=== PATIENT | male | born 1960 | race Caucasian/White ===

== ENCOUNTER → 2016-11-26 15:46 | Emergency (ER) | payer OTHER ==
[~2016-11-26 15:46] MED LIST: Levofloxacin 750 MG IVPREMIX(* 750 MG/150 ML BAG IVPB ONE
[2016-11-26 18:03] LABS: Hematocrit 47 % (42-52); Hemoglobin 15.8 g/dl (14.0-18.0); Mean Corpuscular HGB Conc 34 g/dl (31-36); Mean Corpuscular Hemoglobin 30 pg (27-31); Mean Corpuscular Volume 89 fL (80-94); Mean Platelet Volume 9 um3 (7.4-10.4); Red Blood Count 5.25 10^6/ul (4.0-5.4); Red Cell Distribution Width 12 % (10.5-15); White Blood Count 7.5 10^3/ul (3.5-10.8)
[2016-11-26 18:14] LABS: BUN/Creatinine Ratio 13.8 (8-20); C Reactive Protein 43.59 mg/L (< 5.00); Calcium 9.3 mg/dL (8.6-10.3); EGFR African American 107.2 (>60); EGFR Non-African American 83.3 (>60); Potassium 3.8 mmol/L (3.5-5.0); Total Bilirubin 1.4 mg/dL (0.2-1.0)
--- NOTE | 2016-11-26 19:00 | ED ---
Mariely Hernandez Auryana, scribed for Stewart Arredondo MD on 11/26/16 at 1739 . Respiratory - HPI Summary HPI Summary: 56 year old male presents with SHAW and hemoptysis starting yesterday morning. He reports that he also has pain at the right lateral chest just under the axillary with coughing, fever (on arrival at ), and increased fatigue. He denies chills, diaphoresis, nausea, vomiting, and any rashes. He was seen at Urgent Care - received CXR - referred to ED. Dr. Suarez - patient states he was concerned about infections and pulmonary embolism. 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 FHx is significant for DM, thyroid issues, and cardiac disease (NC etc.). He denies any tobacco, alcohol, or recreational drugs. - History of Current Complaint Chief Complaint: EDChestWallPain Stated Complaint: COUGH Time Seen by Provider: 11/26/16 16:13 Hx Obtained From: Patient Onset/Duration: Sudden Onset, Lasting Days - YESTERDAY, Still Present Initial Severity: Mild Current Severity: Mild Pain Intensity: 4 Character: Cough (Productive), Dyspnea on Exertion Sputum Color: Red (Blood) Aggravating Factor(s): Exertion Associated Signs and Symptoms: Fever, SOB - SHAW, Chest Pain - RIGHT LATERAL, Chest Pain with Cough, Hemoptysis - Allergy/Home Medications Allergies/Adverse Reactions: Allergies Allergy/AdvReac Type Severity Reaction Status Date / Time Fluticasone [From Flovent] Allergy Unknown Verified 03/31/14 15:26 Reaction Details scallops Allergy Unknown Uncoded 03/31/14 15:26 Reaction Details PMH/Surg Hx/FS Hx/Imm Hx Endocrine/Hematology History: Reports: Hx Thyroid Disease - Cancer History Cancer Type, Location and Year: Thyroid CA. [place]imot[place] - Surgical History Surgery Procedure, Year, and Place: THYROIDECTOMY 2000. Inguinal hernia repair Infectious Disease History: No Infectious Disease History: Denies: Traveled Outside the [place] in Last 30 Days - Family History Known Family History: Positive: Cardiac Disease - AND [place], Diabetes, Other - thyroid issues - Social History Occupation: Employed Full-time - [employer] Lives: With Family Alcohol Use: None Hx Substance Use: No Substance Use Type: Reports: None Hx Tobacco Use: No Smoking Status (MU): Never Smoked Tobacco Review of Systems Positive: Fever, Chills, Fatigue Eyes: Negative ENT: Negative Positive: Chest Pain - right lateral chest by axilla Positive: Shortness Of Breath, Cough - hemoptysis Gastrointestinal: Negative Negative: Vomiting, Nausea Genitourinary: Negative Musculoskeletal: Negative Skin: Negative Negative: Rash Neurological: Negative Psychological: Normal All Other Systems Reviewed And Are Negative: Yes Physical Exam - Summary Physical Exam Summary: VITAL SIGNS: Reviewed. GENERAL: Patient is a well-developed and nourished male who is lying comfortable in the stretcher. Patient is not in any acute respiratory distress. HEAD AND FACE: No signs of trauma. No ecchymosis, hematomas or skull depressions. No sinus tenderness. EYES: PERRLA, EOMI x 2, No injected conjunctiva, no nystagmus. EARS: Hearing grossly intact. Ear canals and tympanic membranes are within normal limits. MOUTH: Oropharynx within normal limits. NECK: Supple, trachea is midline, no adenopathy, no JVD, no carotid bruit, no c- spine tenderness, neck with full ROM. CHEST: Symmetric, no tenderness at palpation LUNGS: Crackles in the right base but otherwise clear to auscultation. No wheezing. CVS: Regular rate and rhythm, S1 and S2 present, no murmurs or gallops appreciated. ABDOMEN: Soft, non-tender. No signs of distention. No rebound no guarding, and no masses palpated. Bowel sounds are normal. EXTREMITIES: FROM in all major joints, no edema, no cyanosis or clubbing. NEURO: Alert and oriented x 3. No acute neurological deficits. Speech is normal and follows commands. SKIN: Dry and warm Triage Information Reviewed: Yes Vital Signs On Initial Exam: Initial Vitals Temp Pulse Resp BP Pulse Ox 100.2 F 93 18 143/96 94 11/26/16 15:48 11/26/16 15:48 11/26/16 15:48 11/26/16 15:48 11/26/16 15:48 Vital Signs Reviewed: Yes Diagnostics - Vital Signs Vital Signs Temp Pulse Resp BP Pulse Ox 11/26/16 15:52 100.2 F 100 20 143/96 95 11/26/16 15:48 100.2 F 93 18 143/96 94 - Laboratory Lab Results: Lab Results 11/26/16 11/26/16 11/26/16 Range/Units 16:25 16:25 16:25 WBC 7.5 (3.5-10.8) 10^3/ul RBC 5.25 (4.0-5.4) 10^6/ul Hgb 15.8 (14.0-18.0) g/dl Hct 47 (42-52) % MCV 89 (80-94) fL MCH 30 (27-31) pg MCHC 34 (31-36) g/dl RDW 12 (10.5-15) % Plt Count 161 (150-450) 10^3/ul MPV 9 (7.4-10.4) um3 Neut % (Auto) 62.7 (38-83) % Lymph % (Auto) 24.8 L (25-47) % Potter % (Auto) 10.1 H (1-9) % Eos % (Auto) 1.8 (0-6) % Baso % (Auto) 0.6 (0-2) % Absolute Neuts (auto) 4.7 (1.5-7.7) 10^3/ul Absolute Lymphs (auto) 1.8 (1.0-4.8) 10^3/ul Absolute Monos (auto) 0.8 (0-0.8) 10^3/ul Absolute Eos (auto) 0.1 (0-0.6) 10^3/ul Absolute Basos (auto) 0 (0-0.2) 10^3/ul Absolute Nucleated RBC 0.01 10^3/ul Nucleated RBC % 0.1 INR (Anticoag Therapy) 0.95 (0.89-1.11) APTT 26.8 (26.0-36.3) seconds Sodium 137 (133-145) mmol/L Potassium 3.8 (3.5-5.0) mmol/L Chloride 105 (101-111) mmol/L Carbon Dioxide 25 (22-32) mmol/L Anion Gap 7 (2-11) mmol/L BUN 13 (6-24) mg/dL Creatinine 0.94 (0.67-1.17) mg/dL Est GFR ( Amer) 107.2 (>60) Est GFR (Non-Af Amer) 83.3 (>60) BUN/Creatinine Ratio 13.8 (8-20) Glucose 88 (70-100) mg/dL Calcium 9.3 (8.6-10.3) mg/dL Total Bilirubin 1.40 H (0.2-1.0) mg/dL AST 22 (13-39) U/L ALT 16 (7-52) U/L Alkaline Phosphatase 69 (34-104) U/L C-Reactive Protein 43.59 H (< 5.00) mg/L Total Protein 7.0 (6.4-8.9) g/dL Albumin 4.0 (3.2-5.2) g/dL Globulin 3.0 (2-4) g/dL Albumin/Globulin Ratio 1.3 (1-3) Result Diagrams: 11/26/16 16:25 11/26/16 16:25 Lab Statement: Any lab studies that have been ordered have been reviewed, and results considered in the medical decision making process. Disposition - Course Assessment/Plan: 56 year old male presents with SHAW and hemoptysis starting yesterday morning. He reports that he also has pain at the right lateral chest just under the axillary with coughing, fever (on arrival at ), and increased fatigue. He denies chills, diaphoresis, nausea, vomiting, and any rashes. He was seen at Urgent Care - received CXR - referred to ED. Dr. Suarez - patient states he was concerned about infections and pulmonary embolism. 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 FHx is significant for DM, thyroid issues, and cardiac disease ([place] etc.). He denies any tobacco, alcohol, or recreational drugs. Test results are found within normal limits. CXR impression: RIGHT MIDLUNG CONSOLIDATION. RECOMMEND FOLLOW-UP UNTIL RESOLUTION TO EXCLUDE UNDERLYING. PULMONARY PARENCHYMAL PATHOLOGY. IF THE CLINICAL PRESENTATION IS NOT CONSISTENT WITH. INFECTION, CONSIDER FURTHER EVALUATION WITH CONTRAST-ENHANCED CT OF THE CHEST. In the ED course he was given Levaquin . After medications he is feeling better. CURB 65 criteria is low. I will discharge the patient home with a prescription for Levaquin. I discussed all the findings and test results with the patient. Patient was instructed to return to the emergency room immediately if any of the symptoms return or worsens. Plan of care was discussed with the patient and understands and agrees. All questions were answered at patient satisfaction. There were no further complaints or concerns. Lung exam before discharge: CTA B/L. Good air exchange. No wheezing or crackles heard. CVS: S1 and S2 present. No murmurs appreciated. Patient is alert and oriented x 3. Patient is hemodynamically stable. Patient will be discharged home with follow up PCP in the next 2-3 days - Differential Dx - Cardiopulmonary Differential Diagnoses - Cardiopulmonary: Bronchitis - Pneumonia, Other - PNA - Diagnoses Provider Diagnoses: Bacterial pneumonia Discharge - Discharge Plan Condition: Stable Disposition: HOME Prescriptions: Levofloxacin TAB* [Levaquin 750 MG TAB*] 750 mg PO DAILY #9 tab Patient Education Materials: Bacterial Pneumonia (ED) Referrals: Silvestre Suarez MD [Primary Care Provider] - 2 Days The documentation as recorded by the Mariely torrez Auryana accurately reflects the service I personally performed and the decisions made by Arnulfo gill Walter, MD.
[2016-11-26 19:12] VITALS: BP 130/85
== END | disposition home or self-care (01) ==
LOC: ED 15:46
DX: J15.9 Unspecified bacterial pneumonia (principal); R07.9 Chest pain, unspecified; R04.2 Hemoptysis; R05 Cough; R50.9 Fever, unspecified
CPT/HCPCS: 36415; 80053; 83605; 85025; 85610; 85730; 86140; 99282

== ENCOUNTER 2018-11-30 08:13 | Emergency (ER) | payer OTHER ==
[2018-11-30 08:22] VITALS: BP 132/88
--- NOTE | 2018-11-30 08:58 | UC ---
Back Pain HPI - HPI Summary HPI Summary: pt was doing new YOGA exercises 3 days ago and felt "pull" in L back area that derrek. next day, posterior L back pain persisted, occurs with deep inspiration. no cough, no fever, no rash, no leg pain. tried ice pack which worsened pain because it felt "tigther", warm packs more helpful - History of Current Complaint Chief Complaint: UCBackPain Stated Complaint: LT SIDE BACK/SIDE Time Seen by Provider: 11/30/18 08:37 Hx Obtained From: Patient Onset/Duration: Gradual Onset Timing: Constant Severity Initially: Mild Severity Currently: Moderate Pain Intensity: 7 Back Pain: Is Discrete @ - L posterior back Character: Stiffness Aggravating Factor(s): Movement, Other - deep breath Alleviating Factor(s): Rest, Position, Heat Associated Signs And Symptoms: Negative: Swelling, Redness, Bruising, Fever, Abdominal Pain - Allergies/Home Medications Allergies/Adverse Reactions: Allergies Allergy/AdvReac Type Severity Reaction Status Date / Time fluticasone Allergy Unknown Verified 11/30/18 08:22 [From Flovent Diskus] Reaction Details scallops Allergy Unknown Uncoded 11/30/18 08:22 Reaction Details Home Medications: Home Medications Aspirin/Acetaminophen/Caffeine [Excedrin Extra Strength Caplet] 1 each PO [History] PMH/Surg Hx/FS Hx/Imm Hx Previously Healthy: Yes Endocrine History: Hypothyroidism - Surgical History Surgical History: Yes Surgery Procedure, Year, and Place: THYROIDECTOMY 2000. Inguinal hernia repair - Family History Known Family History: Positive: Cardiac Disease - AND [place], Diabetes, Other - thyroid issues - Social History Occupation: Employed Full-time Lives: With Family Alcohol Use: None Substance Use Type: None Smoking Status (MU): Never Smoked Tobacco Review of Systems All Other Systems Reviewed And Are Negative: Yes Constitutional: Positive: Negative. Negative: Fever, Chills Skin: Positive: Negative Respiratory: Positive: Negative Cardiovascular: Positive: Negative Motor: Positive: Negative Neurovascular: Positive: Negative Musculoskeletal: Positive: Other: - L sided back pain Neurological: Positive: Negative. Negative: Headache Psychological: Positive: Negative Physical Exam Triage Information Reviewed: Yes Appearance: Well-Appearing, No Pain Distress, Well-Nourished Vital Signs: Initial Vital Signs Temp 98.3 F 11/30/18 08:18 Pulse 89 11/30/18 08:18 Resp 18 11/30/18 08:18 BP 132/88 11/30/18 08:18 Pulse Ox 96 11/30/18 08:18 Vital Signs Reviewed: Yes Neck exam: Normal Neck: Positive: Supple, Nontender Respiratory Exam: Normal Respiratory: Positive: Lungs clear, No respiratory distress Cardiovascular Exam: Normal Cardiovascular: Positive: RRR, No Murmur, Pulses Normal, Brisk Capillary Refill Musculoskeletal: Positive: ROM Intact, Other: - pain posterior L thoracic area with deep breath, no skin changes Neurological Exam: Normal Psychological Exam: Normal Skin Exam: Normal Skin: Negative: Rashes Diagnostics - Radiology No standard instances Radiology Interpretation Completed By: Radiologist - L pleural effusion Back Pain Course/Dx - Course Course Of Treatment: discussed case with Dr. Gudino before pt departure - Differential Dx/Diagnosis Differential Diagnosis/HQI/PQRI: Strain, Sprain, Other - herpes zoster. pneumonia, pleurisy Provider Diagnosis: Pleurisy Discharge - Sign-Out/Discharge Documenting (check all that apply): Patient Departure All imaging exams completed and their final reports reviewed: Yes - Discharge Plan Condition: Stable Disposition: HOME Patient Education Materials: Pleurisy (ED) Referrals: Silvestre Suarez MD [Primary Care Provider] - 2 Days (for recheck lungs) Additional Instructions: drink plenty of fluids rest, avoid strenuous exercise Report to ER if you experience shortness of breath, cough, increased back pain or fever Make sure to follow-up with Dr. Suarez in 2 days - Billing Disposition and Condition Condition: STABLE Disposition: Home - Attestation Statements Provider Attestation: I was available for consult. This patient was seen by the TYRESE. The patient was not presented to, seen by, or examined by me. -Rajni
== END 2018-11-30 10:29 | disposition home or self-care (01) ==
LOC: UCEAST 08:13
DX: R09.1 Pleurisy (principal); M54.9 Dorsalgia, unspecified; Z88.8 Allergy status to other drugs, medicaments and biological substances; Z91.013 Allergy to seafood; Z79.82 Long term (current) use of aspirin
CPT/HCPCS: 71046; 99211; G0463